=== PATIENT | male | born 1985 | race Caucasian/White ===

== ENCOUNTER 2019-05-13 19:24 | Emergency (ER) | payer SELFPAY ==
[2019-05-13] MEDS ORDERED: DIPH/PERTUSS(ACELL)/TETANUS VAC/PF 0.5 ML SYR (>=10YO) IM ONE (19:30)
--- NOTE | 2019-05-13 19:31 | ER Document Report ---
ED Medical Screen (RME) - General Chief Complaint: Thumb Injury Stated Complaint: CUT THUMB Time Seen by Provider: 05/13/19 19:30 Mode of Arrival: Ambulatory Information source: Patient Notes: 34-year-old male presented to ED for laceration to the right thumb. It is a deep laceration to the base of the thumb. He states he was trying to push down some garbage in a garbage can when he cut himself on his hand in the garbage. It was still actively bleeding. I have put direct pressure and a wet gauze on it. He was still bleeding with that. We will also order antibiotics. He states he does smoke cigarettes drinks 2 times a week does not use any marijuana. Patient states he tried to get the bleeding to stop and could not get it to stop so he came to the emergency room. I did do come direct compression while materials were gathered for dressing. I have put a saline soaked gauze and Covan on the finger to stop the bleeding. It is still actively be bleeding. I have spoken with the charge nurse who will get a room says that the dressing can be re-moved and the wound reassessed. I have greeted and performed a rapid initial assessment of this patient. A comprehensive ED assessment and evaluation of the patient, analysis of test results and completion of medical decision making process will be conducted by an additional ED providers. Physical Exam - Vital signs Vitals: Temp Pulse Resp BP Pulse Ox 98.3 F 102 H 18 125/81 95 05/13/19 19:35 05/13/19 19:35 05/13/19 19:35 05/13/19 19:35 05/13/19 19:35 Course - Vital Signs Vital signs: Temp Pulse Resp BP Pulse Ox 98.3 F 102 H 18 125/81 95 05/13/19 19:35 05/13/19 19:35 05/13/19 19:35 05/13/19 19:35 05/13/19 19:35
--- NOTE | 2019-05-13 20:37 | RADIOLOGY REPORT (SQ) ---
EXAM DESCRIPTION: Right thumb, three view series CLINICAL HISTORY: 34 years Male, laceration right thumb COMPARISON: None. FINDINGS: No evidence for fracture dislocation. Soft tissue evaluation partially obscured by surrounding dressing. No overt soft tissue abnormality. IMPRESSION: No obvious acute findings.
[2019-05-13] MEDS ORDERED: LIDOCAINE 1% INJ-PF (10 MG/ML) 30 ML SDV INJ ONE (21:16)
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
[2019-05-13 22:07] VITALS: BP 127/81
== END 2019-05-13 22:05 | disposition home or self-care (01) ==
LOC: ER 19:24
DX: S61.011A Laceration without foreign body of right thumb without damage to nail, initial encounter (principal); X58.XXXA Exposure to other specified factors, initial encounter; F17.200 Nicotine dependence, unspecified, uncomplicated; Z23 Encounter for immunization
CPT/HCPCS: 90715